=== PATIENT | male | born 1940 | race African-American/Black ===

== ENCOUNTER 2016-09-06 12:14 | Inpatient (IN) | payer MEDICARE, BC ==
[~2016-09-06] VITALS: Ht 185.4 cm; Wt 88.2 kg
[~2016-09-06 12:14] MED LIST: ACET325T9 PO; CIPR500T94 PO; FINA5TAB4 PO; HYDR-2666 PO; LEVO250T25 PO; NITR100C62 PO; OXYC1TAB7 PO; SULF1TAB23 PO; SULF1TAB24 PO; TAMS0.4C97 PO; TRAM-29 PO
--- NOTE | 2016-09-06 13:05 | PHYS DOC ---
Past Medical History Past Medical History: Other Additional Past Medical Histor: BPH. Past Surgical History: Other Additional Past Surgical Histo: Prostate Surgery Alcohol Use: None Drug Use: None Adult General Chief Complaint Chief Complaint: URINARY RETENTION HPI HPI Patient is a 75 year old male with history of BPH who presents today with inability to void since last night, patient also states he noted some clots coming out of his urethra since last night. Patient states he had prostate surgery July 2015. He states since then he has continued to have intermittent episodes of clots in his urine and urinary retention. He states he called Dr. Cabezas his urologist who asked him to come to the ED to have a catheter placed. He states he has an appointment with kale Cabezas next week Review of Systems Review of Systems Constitutional: Denies fever or chills [] Eyes: Denies change in visual acuity, redness, or eye pain [] HENT: Denies nasal congestion or sore throat [] Respiratory: Denies cough or shortness of breath [] Cardiovascular: No additional information not addressed in HPI [] GI: Denies abdominal pain, nausea, vomiting, bloody stools or diarrhea [] : urinary retention, clots in urine Musculoskeletal: Denies back pain or joint pain [] Integument: Denies rash or skin lesions [] Neurologic: Denies headache, focal weakness or sensory changes [] Endocrine: Denies polyuria or polydipsia [] Current Medications Current Medications Current Medications Medications (Trade) Dose Ordered Sig/[facility] Start Time Stop Time Status Last Admin Dose Admin Acetaminophen/ Hydrocodone Bitart (Lortab 5/325) 1 tab 1X ONCE 09/06/16 15:00 09/06/16 15:01 DC 09/06/16 14:38 1 TAB Tamsulosin HCl (Flomax) 0.4 mg 1X ONCE 09/06/16 15:00 09/06/16 15:01 DC 09/06/16 14:39 0.4 MG Allergies Allergies Allergies Coded Allergies Type Severity Reaction Last Updated Verified No Known Drug Allergies 03/09/16 No Physical Exam Physical Exam Constitutional: Well developed, well nourished, no acute distress, non-toxic appearance. [] HENT: Normocephalic, atraumatic, bilateral external ears normal, oropharynx moist, no oral exudates, nose normal. [] Eyes: PERRLA, EOMI, conjunctiva normal, no discharge. [] Neck: Normal range of motion, no tenderness, supple, no stridor. [] Cardiovascular:Heart rate regular rhythm, no murmur [] Lungs & Thorax: Bilateral breath sounds clear to auscultation [] Abdomen: Bowel sounds normal, soft, no tenderness, no masses, no pulsatile masses. [] Male External has small amount of fresh blood clots around the penis and diaper Blader feels distended Skin: Warm, dry, no erythema, no rash. [] Back: No tenderness, no CVA tenderness. [] Extremities: No tenderness, no cyanosis, no clubbing, ROM intact, no edema. [] Neurologic: Alert and oriented X 3, normal motor function, normal sensory function, no focal deficits noted. [] Psychologic: Affect normal, judgement normal, mood normal. [] Current Patient Data Vital Signs Vital Signs Date Time Temp Pulse Resp B/P Pulse Ox O2 Delivery O2 Flow Rate FiO2 09/06/16 17:13 104 09/06/16 16:43 22 09/06/16 14:43 97 09/06/16 14:38 Room Air 09/06/16 12:30 97.7 197/119 97.7 Lab Values Laboratory Tests Test 09/06/16 13:10 Urine Collection Type U cath Urine Color Red Urine Clarity Turbid Urine pH 5.0 Urine Specific [place] 1.025 Urine Protein >=300mg/dL (NEG-TRACE) Urine Glucose (UA) mg/dL (NEG) Urine Ketones (Stick) mg/dL (NEG) Urine Blood Large (NEG) Urine Nitrite (NEG) Urine Bilirubin (NEG) Urine Urobilinogen Dipstick mg/dL (0.2 mg/dL) Urine Leukocyte Esterase (NEG) Urine RBC Tntc/HPF (0-2) Urine WBC Fobs/HPF (0-4) Urine Bacteria Few/HPF (0-FEW) Course & Med Decision Making Course & Med Decision Making Pertinent Labs and Imaging studies reviewed. (See chart for details) This is a 75-year-old male patient with history of BPH who presents today with urinary retention as well as clots in his urine, he had small amount of clots around his diaper penis area on arrival. He follows up with Dr. Cabezas and states Dr. Cabezas asked him to come to the ED to have a catheter placed. Two nurses tried to place a cuadet catheter which went in and only 30 cc of bloody urine came out, they tried a three way catheter and this one could not be advance in place. BVI [address] Cabezas, he stated he'll come to the ED around 16:30 and put the Lopez catheter, urology cart at the door 16:[address] Jorge 1730: Accepted care from Nhan Chavez APRN at end of her shift. Dr. Cabezas, Urology, came to bedside and placed lopez catheter. He recommended inpatient management for hematuria and urinary retention. Discussed case with Dr. Waldron , supervisor aluminum fabrication for Dr. Lopez, who will admit. Dragon Disclaimer Dragon Disclaimer This electronic medical record was generated, in whole or in part, using a voice recognition dictation system. Departure Departure Impression: Primary Impression: Urinary retention Additional Impression: Hematuria Disposition: ADMITTED INPATIENT Condition: STABLE Referrals: NILA LOPEZ MD (PCP) Problem Qualifiers NHAN ESPINOSA APRN Sep 06, 2016 13:05 Collin JORGE MD Sep 06, 2016 17:39
[2016-09-06 13:21] LABS: PROTEIN,URINE >=300 mg/dL (NEG-TRACE)
[2016-09-06 13:35] LABS: RBC,URINE TNTC /HPF (0-2); WBC,URINE FOBS /HPF (0-4)
[2016-09-06 13:37] LABS: BACTERIA,URINE FEW /HPF (0-FEW)
[2016-09-06] MEDS ORDERED: TAMSULOSIN 0.4 MG CAP.ER.24H. PO ONE (15:00)
[2016-09-06] MEDS ORDERED: HYDROCODONE/APAP 5/325MG TABLET. PO ONE (15:00)
[2016-09-06] MEDS ORDERED: TAMS0.4C97 PO (16:44)
[2016-09-06] MEDS ORDERED: CIPR500T94 PO (16:44)
[2016-09-06] MEDS ORDERED: ONDANSETRON PF 4 MG/2 ML VIAL. IV PRN (17:45)
[2016-09-06] MEDS ORDERED: FENTANYL PF 100 MCG/2 ML VIAL. IV PRN (17:45)
[2016-09-06] MEDS ORDERED: ACETAMINOPHEN 325 MG TABLET. PO PRN (17:45)
--- NOTE | 2016-09-06 18:52 | ACF ---
Admission Forms Criteria URINARY COMPLICATIONS Clinical Indications for Inpatient Care (Place 'X' for any and all applicable criteria): Ongoing inpatient care may be indicated for urinary complications with ANY ONE of the following: [ ]I. Urinary tract infection requiring inpatient care as indicated by ANY ONE of the following(8)(19)(20): [ ]a) Severe symptoms (eg, high fever, severe pain) [ ]b) Vomiting or dehydration requiring ongoing inpatient care [ ]c) IV antibiotic needs that cannot be managed at lower level of care [ ]d) Hemodynamic instability [ ]e) Obstruction of collecting system by stone or tumor [X]II. Urinary retention requiring drainage or surgery (3)(4)(5)(17)(18) [ ]III. Renal failure (Use Renal Failure Criteria for further information.) [ ]IV. Oliguria(30) [ ]V. Post obstructive diuresis requiring close monitoring of urine output and intravenous compensation for excessive fluid losses(33) Extended stay beyond goal length of stay for primary condition may be needed until ALL of the following are present(3)(4)(5)(8): [ ]a) Renal function (creatinine) at baseline, or daily decreases in creatinine consistent with renal function return [ ]b) Voiding adequately or with urinary catheter or percutaneous suprapubic tube and management regimen in place that is performable at lower level of care. [ ]c) Urine output adequate [ ]d) Fever absent or resolving [ ]e) Infection absent or treatable at next level of care The original [employer] content created by [employer] has been revised. The portions of the content which have been revised are identified through the use of italic text or in bold, and [facility] has neither reviewed nor approved the modified material. All other unmodified content is copyright [employer] Please see references footnoted in the original [facility] edition 2016 Admission Criteria Met?: Yes MISHEL CRUZ Sep 06, 2016 18:52
[2016-09-06 19:24] LABS: BASO % 1 % (0-3); EOS % 0 % (0-3); HEMATOCRIT 38.2 % (39.0-53.0); HEMOGLOBIN 12.5 g/dL (13.0-17.5); LYMPH # 0.9 x10^3/uL (1.0-4.8); LYMPH % 14 % (24-48); MEAN CORPUSCULAR HEMOGLOBIN 30 pg (25-35); MEAN CORPUSCULAR HGB CONC 33 g/dL (31-37); MEAN CORPUSCULAR VOLUME 91 fL (79-100); MONO % 9 % (0-9); NEUT % 76 % (31-73); PLATELET COUNT 159 x10^3/uL (140-400); RED BLOOD COUNT 4.21 x10^6/uL (4.30-5.70); RED CELL DISTRIBUTION WIDTH 15.1 % (11.5-14.5); WHITE BLOOD COUNT 6.7 x10^3/uL (4.0-11.0)
[2016-09-06 19:34] LABS: INR 1.1 (0.8-1.1); PROTHROMBIN TIME PATIENT 13.9 SEC (11.7-14.0)
[2016-09-06 19:36] LABS: CALCIUM 8.8 mg/dL (8.5-10.1); CREATININE 1.2 mg/dL (0.7-1.3); POTASSIUM 4.1 mmol/L (3.5-5.1)
[2016-09-06 23:43] VITALS: BP 118/82
[2016-09-07 03:45] VITALS: BP 128/77
[2016-09-07 07:00] VITALS: BP 135/77
[2016-09-07] MEDS ORDERED: OMEP20CA9 PO (08:13)
--- NOTE | 2016-09-07 08:18 | PDOC ---
PROGRESS NOTES Subjective Subjective Patient denies pain, feels fine. Objective Objective Vital Signs Date Time Temp Pulse Resp B/P Pulse Ox O2 Delivery O2 Flow Rate FiO2 09/07/16 07:00 98.0 70 19 135/77 96 Room Air 98.0 Intake and Output 09/07/16 07:00 Intake Total 240 ml Balance 240 ml Intake Oral 240 ml Physical Exam Abdomen: Normal bowel sounds, Soft, No tenderness Heart: Regular rate Extremities: No edema General: Alert, Oriented X3, No acute distress Lungs: Clear to auscultation Assessment Assessment Problems Medical Problems: (1) Hematuria Status: Acute (2) Urinary retention Status: Acute Plan Plan of Care 1. Hematuria with urinary retention - improved after bladder irrigation and lopez placement by Dr Cabezas yesterday in ER. Urine clearing. Dr Cabezas plans cystoscopy tomorrow for further evaluation. Continue Flomax. 2. GERD - stable, continue PPI. Comment Review of Relevant I have reviewed the following items candy (where applicable) has been applied. Labs Laboratory Tests Test 09/06/16 13:10 09/06/16 19:15 Urine Collection Type U cath Urine Color Red Urine Clarity Turbid Urine pH 5.0 Urine Specific [place] 1.025 Urine Protein >=300mg/dL (NEG-TRACE) Urine Glucose (UA) mg/dL (NEG) Urine Ketones (Stick) mg/dL (NEG) Urine Blood Large (NEG) Urine Nitrite (NEG) Urine Bilirubin (NEG) Urine Urobilinogen Dipstick mg/dL (0.2 mg/dL) Urine Leukocyte Esterase (NEG) Urine RBC Tntc/HPF (0-2) Urine WBC Fobs/HPF (0-4) Urine Bacteria Few/HPF (0-FEW) White Blood Count 6.7x10^3/uL (4.0-11.0) Red Blood Count 4.21x10^6/uL (4.30-5.70) Hemoglobin 12.5g/dL (13.0-17.5) Hematocrit 38.2% (39.0-53.0) Mean Corpuscular Volume 91fL (79-100) Mean Corpuscular Hemoglobin 30pg (25-35) Mean Corpuscular Hemoglobin Concent 33g/dL (31-37) Red Cell Distribution Width 15.1% (11.5-14.5) Platelet Count 159x10^3/uL (140-400) Neutrophils (%) (Auto) 76% (31-73) Lymphocytes (%) (Auto) 14% (24-48) Monocytes (%) (Auto) 9% (0-9) Eosinophils (%) (Auto) 0% (0-3) Basophils (%) (Auto) 1% (0-3) Neutrophils # (Auto) 5.1x10^3uL (1.8-7.7) Lymphocytes # (Auto) 0.9x10^3/uL (1.0-4.8) Monocytes # (Auto) 0.6x10^3/uL (0.0-1.1) Eosinophils # (Auto) 0.0x10^3/uL (0.0-0.7) Basophils # (Auto) 0.0x10^3/uL (0.0-0.2) Prothrombin Time 13.9SEC (11.7-14.0) Prothromb Time International Ratio 1.1 (0.8-1.1) Sodium Level 142mmol/L (136-145) Potassium Level 4.1mmol/L (3.5-5.1) Chloride Level 104mmol/L (98-107) Carbon Dioxide Level 27mmol/L (21-32) Anion Gap 11 (6-14) Blood Urea Nitrogen 16mg/dL (8-26) Creatinine 1.2mg/dL (0.7-1.3) Estimated GFR (Cockcroft-Gault) 71.0 Glucose Level 114mg/dL (70-99) Calcium Level 8.8mg/dL (8.5-10.1) Laboratory Tests Test 09/06/16 13:10 09/06/16 19:15 Urine Collection Type U cath Urine Color Red Urine Clarity Turbid Urine pH 5.0 Urine Specific [place] 1.025 Urine Protein >=300mg/dL (NEG-TRACE) Urine Glucose (UA) mg/dL (NEG) Urine Ketones (Stick) mg/dL (NEG) Urine Blood Large (NEG) Urine Nitrite (NEG) Urine Bilirubin (NEG) Urine Urobilinogen Dipstick mg/dL (0.2 mg/dL) Urine Leukocyte Esterase (NEG) Urine RBC Tntc/HPF (0-2) Urine WBC Fobs/HPF (0-4) Urine Bacteria Few/HPF (0-FEW) White Blood Count 6.7x10^3/uL (4.0-11.0) Red Blood Count 4.21x10^6/uL (4.30-5.70) Hemoglobin 12.5g/dL (13.0-17.5) Hematocrit 38.2% (39.0-53.0) Mean Corpuscular Volume 91fL (79-100) Mean Corpuscular Hemoglobin 30pg (25-35) Mean Corpuscular Hemoglobin Concent 33g/dL (31-37) Red Cell Distribution Width 15.1% (11.5-14.5) Platelet Count 159x10^3/uL (140-400) Neutrophils (%) (Auto) 76% (31-73) Lymphocytes (%) (Auto) 14% (24-48) Monocytes (%) (Auto) 9% (0-9) Eosinophils (%) (Auto) 0% (0-3) Basophils (%) (Auto) 1% (0-3) Neutrophils # (Auto) 5.1x10^3uL (1.8-7.7) Lymphocytes # (Auto) 0.9x10^3/uL (1.0-4.8) Monocytes # (Auto) 0.6x10^3/uL (0.0-1.1) Eosinophils # (Auto) 0.0x10^3/uL (0.0-0.7) Basophils # (Auto) 0.0x10^3/uL (0.0-0.2) Prothrombin Time 13.9SEC (11.7-14.0) Prothromb Time International Ratio 1.1 (0.8-1.1) Sodium Level 142mmol/L (136-145) Potassium Level 4.1mmol/L (3.5-5.1) Chloride Level 104mmol/L (98-107) Carbon Dioxide Level 27mmol/L (21-32) Anion Gap 11 (6-14) Blood Urea Nitrogen 16mg/dL (8-26) Creatinine 1.2mg/dL (0.7-1.3) Estimated GFR (Cockcroft-Gault) 71.0 Glucose Level 114mg/dL (70-99) Calcium Level 8.8mg/dL (8.5-10.1) Medications Current Medications Tamsulosin HCl (Flomax) 0.4 mg 1X ONCE PO Last administered on 09/06/16 14:39 ; Start 09/06/16 at 15:00; Stop 09/06/16 at 15:01; Status DC Acetaminophen/ Hydrocodone Bitart (Lortab 5/325) 1 tab 1X ONCE PO Last administered on 09/06/16 14:38; Start 09/06/16 at 15:00; Stop 09/06/16 at 15:01 ; Status DC Ondansetron HCl (Zofran) 4 mg PRN Q8HRS PRN IV NAUSEA/VOMITING; Start 09/06/16 at 17:45; Stop 09/07/16 at 17:44 Fentanyl Citrate (Fentanyl 2ml Vial) 50 mcg PRN Q2HR PRN IV PAIN Last administered on 09/07/16 02:24; Start 09/06/16 at 17:45; Stop 09/07/16 at 17:44 Acetaminophen (Tylenol) 650 mg PRN Q4HRS PRN PO FEVER; Start 09/06/16 at 17:45 ; Stop 09/07/16 at 17:44 Active Scripts Active Omeprazole 20 Mg Capsule.dr 1 Cap PO DAILY Flomax (Tamsulosin Hcl) 0.4 Mg Cap.er.24h 0.4 Mg PO DAILY Reported Tylenol (Acetaminophen) 325 Mg Tablet 1 Tab PO PRN Q4HRS Vitals/I & O Vital Sign - Last 24 Hours 09/06/16 09/06/16 09/06/16 09/06/16 12:30 13:13 13:43 14:13 Temp 97.7 97.7 Pulse 112 108 97 88 Resp 24 17 B/P 197/119 Pulse Ox 100 99 98 99 O2 Delivery Room Air 09/06/16 09/06/16 09/06/16 09/06/16 14:38 14:43 15:13 15:43 Pulse 89 112 92 Resp 14 24 Pulse Ox 97 O2 Delivery Room Air 09/06/16 09/06/16 09/06/16 09/06/16 16:13 16:43 17:13 17:43 Pulse 98 97 104 96 Resp 22 26 Pulse Ox 98 09/06/16 09/07/16 09/07/16 09/07/16 23:43 02:24 02:54 03:20 Temp 97.7 97.7 Pulse 94 Resp 20 18 18 B/P 118/82 Pulse Ox 100 100 100 O2 Delivery Room Air Room Air Room Air 09/07/16 09/07/16 03:45 07:00 Temp 98.0 98.0 98.0 98.0 Pulse 82 70 Resp 19 B/P 128/77 135/77 Pulse Ox 97 96 O2 Delivery Room Air Room Air Intake and Output 09/06/16 09/06/16 09/07/16 15:00 23:00 07:00 Intake Total 240 ml Balance 240 ml LUDIVINA BROWN MD Sep 07, 2016 08:18
--- NOTE | 2016-09-07 08:20 | PDOC ---
Provider Note Provider Note Urology: s/p acute urine clot retention Montague placed by me yesterday, and bladder irrigated until clot free Today, urine color much improved Plan: will allow to eat today NPO after midnight and put on schedule for Cystoscopy tomorrow GLORY CHEN DO Sep 07, 2016 08:20
[2016-09-07] MEDS: TAMSULOSIN 0.4 MG CAP.ER.24H. PO SCH (08:45)
[2016-09-07] MEDS: PANTOPRAZOLE 40 MG TABLET.DR. PO SCH (08:45)
[2016-09-07] MEDS: HYDROCODONE/APAP 5/325MG TABLET. PO PRN ×3 (09:11→22:32)
[2016-09-07 11:00] VITALS: BP 115/66
--- NOTE | 2016-09-07 11:20 | HP ---
ADMIT DATE: 09/06/2016 CHIEF COMPLAINT: Hematuria. HISTORY OF PRESENT ILLNESS: The patient is a 75-year-old male with a history of BPH who presented to the Emergency Room with the above complaint. He reports the onset of hematuria on the day of admission. He describes some pelvic pain that occurred and then he noticed bright red blood in his urine. He also apparently had some difficulty passing his urine. He presented to the Emergency Room. He was seen there by Dr. Cabezas who is his usual urologist. Dr. Cabezas performed bladder irrigation and was then able to place a Montague catheter and the patient was admitted for further treatment. PAST MEDICAL HISTORY: BPH, GERD, osteoarthritis and urinary retention. PAST SURGICAL HISTORY: TURP in the past in 2016, back surgery and hernia repair. ALLERGIES: The patient has no known drug allergies. HOME MEDICATIONS: Flomax 0.4 mg daily, Prilosec 20 mg daily. The patient states that he took Proscar in the past, but had not been taking it recently. FAMILY HISTORY: Noncontributory. SOCIAL HISTORY: The patient is . He has never smoked cigarettes and does not drink alcohol to excess. REVIEW OF SYSTEMS: The patient states he has been feeling well. He denies cough or shortness of breath. He denies chest pain or palpitations. He denies abdominal pain, nausea, vomiting or problems with his bowels. His heartburn seems well controlled with [id number] Prilosec that he takes daily. He denies other recent episodes of hematuria or difficulty passing his urine. PHYSICAL EXAMINATION: GENERAL: The patient is alert and oriented x 3, resting comfortably in bed in no acute distress. HEENT: PERRL, EOMI, sclerae clear. Oropharynx: Mucous membranes moist. NECK: Supple, without lymphadenopathy. CHEST: Clear to auscultation. CARDIOVASCULAR: Regular rhythm without murmur. ABDOMEN: Soft, nontender, normoactive bowel sounds are present. EXTREMITIES: Without edema. ASSESSMENT AND PLAN: 1. Hematuria with urinary retention. This appears to have improved after bladder irrigation and Montague placement by Dr. Cabezas yesterday. The patient's urine is clearing up well. Dr. Cabezas plans cystoscopy tomorrow for further evaluation. Will continue the patient's usual Flomax. 2. Gastroesophageal reflux disease, this has been stable. Continue proton pump inhibitors. LUDIVINA BROWN MD DR: Vilma JOB#: [id number] / [id number] ASUNCION
--- NOTE | 2016-09-07 11:26 | RAD ---
Renal ultrasound, 09/07/2016: History: Gross hematuria The right kidney measures 11.7 cm in length while the left kidney measures 12.0 cm. There is no evidence of hydronephrosis. There are at least 3 simple cysts in the left kidney. The largest of these arises from the upper pole and measures 4.6 cm. No solid renal mass is seen. No abnormal perinephric process is evident. The bladder is decompressed by a Montague catheter and not adequately delineated. IMPRESSION: 1. Left renal cysts. 2. No evidence of renal obstruction.
[2016-09-07 15:00] VITALS: BP 126/72
[2016-09-07 19:00] VITALS: BP 117/71
[2016-09-07 22:53] VITALS: BP 147/82
[2016-09-08] VITALS (12 sets, daily range): BP systolic 110–161; BP diastolic 47–100
[2016-09-08] MEDS ORDERED: MORPHINE SULFATE 2 MG/ML DISP.SYRIN. IV PRN (07:00)
[2016-09-08] MEDS ORDERED: ONDANSETRON PF 4 MG/2 ML VIAL. IV PRN (07:00)
[2016-09-08] MEDS ORDERED: LIDOCAINE 1% 1 ML SYRINGE. ID PRN (07:00)
[2016-09-08] MEDS ORDERED: FENTANYL PF 100 MCG/2 ML VIAL. IV PRN ×2 (07:00)
[2016-09-08] MEDS ORDERED: HYDROMORPHONE 2 MG/ML VIAL. IV PRN (07:00)
[2016-09-08] MEDS ORDERED: PROCHLORPERAZINE 10 MG/2 ML VIAL. IV PRN (07:00)
[2016-09-08] MEDS ORDERED: IV RINGERS,LACTATED 1000ML 1,000 ML IV SCH (07:00)
[2016-09-08] MEDS: TAMSULOSIN 0.4 MG CAP.ER.24H. PO SCH (07:25)
[2016-09-08] MEDS: PANTOPRAZOLE 40 MG TABLET.DR. PO SCH (07:25)
--- NOTE | 2016-09-08 08:06 | PDOC ---
PROGRESS NOTES Subjective Subjective Patient without complaint, no pelvic pain. Objective Objective Vital Signs Date Time Temp Pulse Resp B/P Pulse Ox O2 Delivery O2 Flow Rate FiO2 09/08/16 03:00 99.3 70 18 127/72 98 Room Air 99.3 Intake and Output 09/08/16 07:00 Intake Total 1850 ml Output Total 1825 ml Balance 25 ml Intake Oral 1850 ml Output Urine Total 1825 ml Physical Exam Abdomen: Normal bowel sounds, Soft, No tenderness Heart: Regular rate Extremities: No edema General: Alert, Oriented X3, No acute distress Lungs: Clear to auscultation Assessment Assessment Problems Medical Problems: (1) Hematuria Status: Acute (2) Urinary retention Status: Acute Plan Plan of Care 1. Urinary retention with hematuria - urine appears clear in Mont[place]. Dr Cabezas plans cystoscopy today, anticipate patient may be able to be discharged after that if OK with Dr Cabezas. Continue Montague for now. Continue Flomax. 2. GERD - controlled, continue PPI. Comment Review of Relevant I have reviewed the following items candy (where applicable) has been applied. Labs Laboratory Tests Test 09/06/16 13:10 09/06/16 19:15 Urine Collection Type U cath Urine Color Red Urine Clarity Turbid Urine pH 5.0 Urine Specific [place] 1.025 Urine Protein >=300mg/dL (NEG-TRACE) Urine Glucose (UA) mg/dL (NEG) Urine Ketones (Stick) mg/dL (NEG) Urine Blood Large (NEG) Urine Nitrite (NEG) Urine Bilirubin (NEG) Urine Urobilinogen Dipstick mg/dL (0.2 mg/dL) Urine Leukocyte Esterase (NEG) Urine RBC Tntc/HPF (0-2) Urine WBC Fobs/HPF (0-4) Urine Bacteria Few/HPF (0-FEW) White Blood Count 6.7x10^3/uL (4.0-11.0) Red Blood Count 4.21x10^6/uL (4.30-5.70) Hemoglobin 12.5g/dL (13.0-17.5) Hematocrit 38.2% (39.0-53.0) Mean Corpuscular Volume 91fL (79-100) Mean Corpuscular Hemoglobin 30pg (25-35) Mean Corpuscular Hemoglobin Concent 33g/dL (31-37) Red Cell Distribution Width 15.1% (11.5-14.5) Platelet Count 159x10^3/uL (140-400) Neutrophils (%) (Auto) 76% (31-73) Lymphocytes (%) (Auto) 14% (24-48) Monocytes (%) (Auto) 9% (0-9) Eosinophils (%) (Auto) 0% (0-3) Basophils (%) (Auto) 1% (0-3) Neutrophils # (Auto) 5.1x10^3uL (1.8-7.7) Lymphocytes # (Auto) 0.9x10^3/uL (1.0-4.8) Monocytes # (Auto) 0.6x10^3/uL (0.0-1.1) Eosinophils # (Auto) 0.0x10^3/uL (0.0-0.7) Basophils # (Auto) 0.0x10^3/uL (0.0-0.2) Prothrombin Time 13.9SEC (11.7-14.0) Prothromb Time International Ratio 1.1 (0.8-1.1) Sodium Level 142mmol/L (136-145) Potassium Level 4.1mmol/L (3.5-5.1) Chloride Level 104mmol/L (98-107) Carbon Dioxide Level 27mmol/L (21-32) Anion Gap 11 (6-14) Blood Urea Nitrogen 16mg/dL (8-26) Creatinine 1.2mg/dL (0.7-1.3) Estimated GFR (Cockcroft-Gault) 71.0 Glucose Level 114mg/dL (70-99) Calcium Level 8.8mg/dL (8.5-10.1) Microbiology 09/06/16 Urine Culture - Preliminary, Resulted 09/06/16 Urine Culture Result 1 (ROSELINE) - Preliminary, Resulted Medications Current Medications Tamsulosin HCl (Flomax) 0.4 mg 1X ONCE PO Last administered on 09/06/16 14:39 ; Start 09/06/16 at 15:00; Stop 09/06/16 at 15:01; Status DC Acetaminophen/ Hydrocodone Bitart (Lortab 5/325) 1 tab 1X ONCE PO Last administered on 09/06/16 14:38; Start 09/06/16 at 15:00; Stop 09/06/16 at 15:01 ; Status DC Ondansetron HCl (Zofran) 4 mg PRN Q8HRS PRN IV NAUSEA/VOMITING; Start 09/06/16 at 17:45; Stop 09/07/16 at 17:44; Status DC Fentanyl Citrate (Fentanyl 2ml Vial) 50 mcg PRN Q2HR PRN IV PAIN Last administered on 09/07/16 02:24; Start 09/06/16 at 17:45; Stop 09/07/16 at 09:00 ; Status DC Acetaminophen (Tylenol) 650 mg PRN Q4HRS PRN PO FEVER; Start 09/06/16 at 17:45 ; Stop 09/07/16 at 17:44; Status DC Tamsulosin HCl (Flomax) 0.4 mg DAILY PO Last administered on 09/07/16 08:45; Start 09/07/16 at 09:00 Pantoprazole Sodium (Protonix) 40 mg DAILYAC PO Last administered on 09/07/16 08:45; Start 09/07/16 at 09:00 Acetaminophen/ Hydrocodone Bitart (Lortab 5/325) 1 tab PRN Q6HRS PRN PO PAIN Last administered on 09/07/16 22:32; Start 09/07/16 at 09:00 Ondansetron HCl (Zofran) 4 mg PRN Q6HRS PRN IV NAUSEA/VOMITING; Start 09/08/16 at 07:00; Stop 09/09/16 at 01:00 Fentanyl Citrate (Fentanyl 2ml Vial) 25 mcg PRN Q5MIN PRN IV MILD PAIN; Start 09/08/16 at 07:00; Stop 09/09/16 at 01:00 Fentanyl Citrate (Fentanyl 2ml Vial) 50 mcg PRN Q5MIN PRN IV MODERATE PAIN; Start 09/08/16 at 07:00; Stop 09/09/16 at 01:00 Morphine Sulfate 1 mg 1 mg PRN Q10MIN PRN IV SEVERE PAIN; Start 09/08/16 at 07: 00; Stop 09/09/16 at 01:00 Lactated Ringer's (Iv Lactated Ringers) 1,000 ml @ 0 mls/hr Q0M IV ; Start at 07:00; Stop 09/08/16 at 18:59 Lidocaine HCl 2 ml PRN 1X PRN ID PRIOR TO IV START; Start 09/08/16 at 07:00; Stop 09/09/16 at 01:00 Hydromorphone HCl (Dilaudid) 0.5 mg PRN Q10MIN PRN IV SEV PAIN, Second choice; Start 09/08/16 at 07:00; Stop 09/09/16 at 01:00 Prochlorperazine Edisylate (Compazine) 5 mg PACU PRN PRN IV NAUSEA, MRX1; Start 09/08/16 at 07:00; Stop 09/09/16 at 01:00 Active Scripts Active Omeprazole 20 Mg Capsule.dr 1 Cap PO DAILY Flomax (Tamsulosin Hcl) 0.4 Mg Cap.er.24h 0.4 Mg PO DAILY Reported Tylenol (Acetaminophen) 325 Mg Tablet 1 Tab PO PRN Q4HRS Vitals/I & O Vital Sign - Last 24 Hours 09/07/16 09/07/16 09/07/16 09/07/16 09:11 11:00 15:00 18:12 Temp 98.4 97.6 98.4 97.6 Pulse 75 71 Resp 19 19 B/P 115/66 126/72 Pulse Ox 95 96 O2 Delivery Room Air Room Air Room Air Room Air 09/07/16 09/07/16 09/07/16 09/07/16 19:00 20:00 22:32 22:53 Temp 98.4 98.6 98.4 98.6 Pulse 77 76 Resp 18 18 18 B/P 117/71 147/82 Pulse Ox 97 96 97 O2 Delivery Room Air Room Air Room Air Room Air 09/07/16 09/08/16 23:32 03:00 Temp 99.3 99.3 Pulse 70 Resp 20 18 B/P 127/72 Pulse Ox 97 98 O2 Delivery Room Air Room Air Intake and Output 09/07/16 09/07/16 09/08/16 15:00 23:00 07:00 Intake Total 500 ml 1350 ml Output Total 1075 ml 750 ml Balance 500 ml 275 ml -750 ml LUDIVINA BROWN MD Sep 08, 2016 08:06
[2016-09-08] MEDS: HYDROCODONE/APAP 5/325MG TABLET. PO PRN ×2 (10:53→21:30)
--- NOTE | 2016-09-08 11:04 | CONS ---
DATE OF CONSULTATION: 09/06/2016 CHIEF COMPLAINT: Urinary clot retention, inability to place Montague catheter. HISTORY OF PRESENT ILLNESS: This is a 75-year-old -[place] male who presented to the Emergency Room complaining of gross hematuria, which started earlier in the day, bladder pain and inability to void. The nursing staff attempted to place a Montague catheter, but they were not able to place one and therefore Urology was consulted. PAST MEDICAL HISTORY: The patient does have a history of BPH. He evidently had a TURP years ago. MEDICATIONS: The patient denies blood thinners. PHYSICAL EXAMINATION: GENERAL DESCRIPTION: A 75-year-old -[place] male. He is in moderate distress secondary to bladder pain and discomfort. GENITOURINARY: He has gross hematuria around the meatus and some blood-tinged urine on the sheets. EXTREMITIES: Negative for cyanosis or edema. PROCEDURE: The patient was prepped and draped in sterile fashion, 2% lidocaine gel was instilled into the urethra. Following that, a 20-Maltese Montague catheter was lubricated and advanced into the urethra past the prostate and into the bladder. The 10 mL balloon was filled. There was immediate return of dark bloody urine with clots. I then began to irrigate the catheter with a Anncy syringe and sterile water and there was immediate return of grossly bloody urine and numerous clots. After a few minutes, I had the bladder decompressed and the patient was more comfortable. Then for the next 30 minutes I continued to irrigate with the Nancy syringe to remove as many clots as I could and this process took about 40 minutes. At this point, there were fewer clots. The urine was still heme colored. The catheter was connected to dependent drainage bag. The patient felt much better at this point. He was no longer in distress. His vital signs were within normal limits. IMPRESSION: 1. Gross hematuria. 2. Urinary clot retention. PLAN: The patient was admitted to the hospital to the hospitalist. I will follow him throughout his hospital course. He will need a cystoscopy evaluation prior to discharge. This was explained to the patient. GLORY CHEN DO DR: ARON/marcela JOB#: [id number] / [id number]
[2016-09-08] MEDS ORDERED: LEVOFLOXACIN PREMIX 500 MG/100 ML BAG. IV ONE (12:00)
[2016-09-08] MEDS ORDERED: LIDOCAINE 2% JELLY 6ML IN APPLICATOR. ONE (12:00)
[2016-09-08] MEDS ORDERED: FENTANYL PF 100 MCG/2 ML VIAL. ONE (12:56)
[2016-09-08] MEDS ORDERED: DEXAMETHASONE SOD PHOS 20 MG/5 ML VIAL. ONE (12:56)
[2016-09-08] MEDS ORDERED: LIDOCAINE 2% 100 MG/5 ML DISP.SYRIN. ONE (12:56)
[2016-09-08] MEDS ORDERED: PROPOFOL 20 ML IV ONE ×2 (12:56→13:55)
[2016-09-08] MEDS ORDERED: SEVOFLURANE 61 TO 120 MINUTES. IH ONE (12:56)
[2016-09-08] MEDS ORDERED: ONDANSETRON PF 4 MG/2 ML VIAL. ONE (12:57)
[2016-09-08] MEDS ORDERED: PHENYLEPHRINE in 0.9% NACL PF 1 MG/10 ML DISP.SYRIN. IV ONE (13:45)
[2016-09-08] MEDS ORDERED: EPHEDRINE PF IN SALINE 50 MG/5 ML DISP.SYRIN. IV ONE (14:01)
--- NOTE | 2016-09-08 14:29 | PDOC ---
BRIEF OPERATIVE NOTE Date: Sep 08, 2016 Pre-Op Diagnosis Gross Hematuria, urinary clot retention Post-Op Diagnosis Hemorrhagic prostatitis Procedure Performed Cystoscopy fulguration prostate Surgeon Jocelynn Anesthesia Type: General Specimens Obtained None Findings Hemorrhagic prostate Complications none Additional Remarks Tolerated well. GLORY CHEN DO Sep 08, 2016 14:28
--- NOTE | 2016-09-08 14:30 | PDOC ---
Provider Note Provider Note Urology: Patient should be able to go home tomorrow Rx Cipro, Flomax, Proscar f/u as needed. GLORY CHEN DO Sep 08, 2016 14:30
--- NOTE | 2016-09-08 19:05 | OP ---
DATE OF SURGERY: 09/08/2016 PREOPERATIVE DIAGNOSES: Gross hematuria, urinary clot retention. POSTOPERATIVE DIAGNOSIS: Hemorrhagic prostatitis. PROCEDURE: Cystoscopy, fulguration of prostate. SURGEON: Glory Chen DO. ANESTHESIA: General. INDICATIONS AND JUDGMENT: This is a 75-year-old -[place] male who was admitted through the Emergency Room with gross hematuria and urinary clot retention. A catheter was placed in the Emergency Room and irrigated until he was free of clots. The following day, the patient's urine was improved. It was felt that he should undergo cystoscopy to determine site of bleeding. He appeared to understand and was agreeable. He has a previous history of a TURP procedure. He denies any difficulty voiding prior to his hospitalization. DESCRIPTION OF PROCEDURE: The patient was preloaded with IV Levaquin. He was taken to the operating room, placed on the operating room table in supine position, given a general anesthetic and then placed in a dorsolithotomy position. Perineum and genitalia prepped and draped in sterile fashion. Rigid cystoscopy was performed. The urethra was normal in course and caliber. The prostate was visualized. He had hemorrhagic friable blood vessels on the prostate. His prostate was adequately resected. He was not visually obstructed. The scope was advanced into the bladder. The bladder was carefully examined with a 30 degree and 70 degree lens. There was no evidence of bladder tumor, negative for bladder calculi. It appeared that the bleeding had originated within the prostate fossa. A 24-Iranian resectoscope sheath was introduced into the urethra and into the bladder. An [employer] resectoscope was then utilized and was fitted with a rollerball electrode. The prostate and the friable blood vessels were fulgurated with the rollerball electrode. This was carried out at the prostate, most of the friable bleeding tight vessels were at the bladder neck and at the mid prostatic fossa. Hemostasis was obtained. The instruments were removed. A 20-Iranian 2-way Montague catheter was lubricated and advanced into the urethra and into the bladder without difficulty. A 10 mL balloon was filled and this was connected to a dependent drainage bag. Plans will be to get the Montague catheter out in the morning. The patient will be going home on antibiotics, Cipro 500 mg p.o. b.i.d. for 5 days, a prescription for Flomax 1 tablet daily and a prescription for Proscar 5 mg daily to dry up the hemorrhagic blood vessels of the prostate. GLORY CHEN DO DR: ARON/marcela JOB#: [id number] / [id number]
[2016-09-09 02:40] VITALS: BP 144/84
[2016-09-09 07:00] VITALS: BP 160/82
[2016-09-09] MEDS: PANTOPRAZOLE 40 MG TABLET.DR. PO SCH (08:06)
[2016-09-09] MEDS: TAMSULOSIN 0.4 MG CAP.ER.24H. PO SCH (08:07)
--- NOTE | 2016-09-09 08:33 | PDOC ---
PROGRESS NOTES Subjective Subjective Patient feels fine, ready to go home today. Objective Objective Vital Signs Date Time Temp Pulse Resp B/P Pulse Ox O2 Delivery O2 Flow Rate FiO2 09/09/16 07:00 97.7 80 20 160/82 96 Room Air 97.7 Intake and Output 09/09/16 07:00 Intake Total 760 ml Output Total 2375 ml Balance -1615 ml Intake Oral 760 ml Output Urine Total 2375 ml Physical Exam Abdomen: Normal bowel sounds, Soft, No tenderness Heart: Regular rate Extremities: No edema General: Alert, Oriented X3, No acute distress Lungs: Clear to auscultation Assessment Assessment Problems Medical Problems: (1) Hematuria Status: Acute (2) Prostatic hemorrhage Status: Acute (3) Urinary retention Status: Acute Plan Plan of Care 1. Hemorrhagic prostatitis - tx on cystoscopy yesterday. Home today on Flomax, Cipro and Proscar per Dr Cabezas. Continue Montague per his recommendation. Patient comfortable with this. Urine culture negative. Comment Review of Relevant I have reviewed the following items candy (where applicable) has been applied. Labs Microbiology 09/06/16 Urine Culture - Final, Complete 09/06/16 Urine Culture Result 1 (ROSELINE) - Final, Complete Medications Current Medications Tamsulosin HCl (Flomax) 0.4 mg 1X ONCE PO Last administered on 09/06/16 14:39 ; Start 09/06/16 at 15:00; Stop 09/06/16 at 15:01; Status DC Acetaminophen/ Hydrocodone Bitart (Lortab 5/325) 1 tab 1X ONCE PO Last administered on 09/06/16 14:38; Start 09/06/16 at 15:00; Stop 09/06/16 at 15:01 ; Status DC Ondansetron HCl (Zofran) 4 mg PRN Q8HRS PRN IV NAUSEA/VOMITING; Start 09/06/16 at 17:45; Stop 09/07/16 at 17:44; Status DC Fentanyl Citrate (Fentanyl 2ml Vial) 50 mcg PRN Q2HR PRN IV PAIN Last administered on 09/07/16 02:24; Start 09/06/16 at 17:45; Stop 09/07/16 at 09:00 ; Status DC Acetaminophen (Tylenol) 650 mg PRN Q4HRS PRN PO FEVER; Start 09/06/16 at 17:45 ; Stop 09/07/16 at 17:44; Status DC Tamsulosin HCl (Flomax) 0.4 mg DAILY PO Last administered on 09/09/16 08:07; Start 09/07/16 at 09:00 Pantoprazole Sodium (Protonix) 40 mg DAILYAC PO Last administered on 09/09/16 08:06; Start 09/07/16 at 09:00 Acetaminophen/ Hydrocodone Bitart (Lortab 5/325) 1 tab PRN Q6HRS PRN PO PAIN Last administered on 09/08/16 21:30; Start 09/07/16 at 09:00 Ondansetron HCl (Zofran) 4 mg PRN Q6HRS PRN IV NAUSEA/VOMITING; Start 09/08/16 at 07:00; Stop 09/09/16 at 01:00; Status DC Fentanyl Citrate (Fentanyl 2ml Vial) 25 mcg PRN Q5MIN PRN IV MILD PAIN; Start 09/08/16 at 07:00; Stop 09/09/16 at 01:00; Status DC Fentanyl Citrate (Fentanyl 2ml Vial) 50 mcg PRN Q5MIN PRN IV MODERATE PAIN Last administered on 09/08/16 14:43; Start 09/08/16 at 07:00; Stop 09/09/16 at 01:00; Status DC Morphine Sulfate 1 mg 1 mg PRN Q10MIN PRN IV SEVERE PAIN; Start 09/08/16 at 07: 00; Stop 09/09/16 at 01:00; Status DC Lactated Ringer's (Iv Lactated Ringers) 1,000 ml @ 0 mls/hr Q0M IV Last administered on 09/08/16 12:10; Start 09/08/16 at 07:00; Stop 09/08/16 at 18:59 ; Status DC Lidocaine HCl 2 ml PRN 1X PRN ID PRIOR TO IV START; Start 09/08/16 at 07:00; Stop 09/09/16 at 01:00; Status DC Hydromorphone HCl (Dilaudid) 0.5 mg PRN Q10MIN PRN IV SEV PAIN, Second choice; Start 09/08/16 at 07:00; Stop 09/09/16 at 01:00; Status DC Prochlorperazine Edisylate 5 mg 5 mg PACU PRN PRN IV NAUSEA, MRX1; Start at 07:00; Stop 09/09/16 at 01:00; Status DC Levofloxacin/ Dextrose (LEVAQUIN 500mg PREMIX) 100 ml @ As Directed STK-MED ONCE IV ; Start 09/08/16 at 12:11; Stop 09/08/16 at 12:12; Status DC Sevoflurane (Ultane) 60 ml STK-MED ONCE IH ; Start 09/08/16 at 12:56; Stop 09/08 at 12:57; Status DC Fentanyl Citrate 100 mcg 100 mcg STK-MED ONCE .ROUTE ; Start 09/08/16 at 12:56; Stop 09/08/16 at 12:57; Status DC Propofol (Diprivan) 20 ml @ As Directed STK-MED ONCE IV ; Start 09/08/16 at 12: 56; Stop 09/08/16 at 12:57; Status DC Lidocaine HCl 100 mg STK-MED ONCE .ROUTE ; Start 09/08/16 at 12:56; Stop at 12:57; Status DC Dexamethasone Sodium Phosphate (Decadron) 20 mg STK-MED ONCE .ROUTE ; Start at 12:56; Stop 09/08/16 at 12:57; Status DC Ondansetron HCl 4 mg 4 mg STK-MED ONCE .ROUTE ; Start 09/08/16 at 12:57; Stop at 12:58; Status DC Levofloxacin/ Dextrose (LEVAQUIN 500mg PREMIX) 100 ml @ 100 mls/hr 1X ONCE IV ; Start 09/08/16 at 13:30; Stop 09/08/16 at 14:29; Status DC Phenylephrine HCl 1 mg 1 mg STK-MED ONCE IV ; Start 09/08/16 at 13:45; Stop at 13:46; Status DC Propofol (Diprivan) 20 ml @ As Directed STK-MED ONCE IV ; Start 09/08/16 at 13: 55; Stop 09/08/16 at 13:56; Status DC Ephedrine Sulfate 50 mg STK-MED ONCE IV ; Start 09/08/16 at 14:01; Stop at 14:02; Status DC Lidocaine HCl (Glydo (Lidocaine) Jelly) 12 ekaterina STK-MED ONCE .ROUTE ; Start 09/08 at 12:00; Stop 09/08/16 at 16:20; Status DC Active Scripts Active Omeprazole 20 Mg Capsule.dr 1 Cap PO DAILY Flomax (Tamsulosin Hcl) 0.4 Mg Cap.er.24h 0.4 Mg PO DAILY Reported Tylenol (Acetaminophen) 325 Mg Tablet 1 Tab PO PRN Q4HRS Vitals/I & O Vital Sign - Last 24 Hours 09/08/16 09/08/16 09/08/16 09/08/16 10:53 11:00 12:16 14:23 Temp 98.2 98.3 97.6 98.2 98.3 97.6 Pulse 80 74 77 Resp 18 B/P 137/89 150/76 123/60 Pulse Ox 94 97 100 O2 Delivery Room Air Room Air Room Air Room Air 09/08/16 09/08/16 09/08/16 09/08/16 14:38 14:43 14:54 15:09 Temp 98.2 98.2 Pulse 82 73 74 Resp 16 14 B/P 131/76 141/75 144/80 Pulse Ox 95 96 96 O2 Delivery Room Air Room Air Room Air Room Air 09/08/16 09/08/16 09/08/16 09/08/16 15:30 15:45 16:00 16:15 Temp 97.9 97.9 97.9 97.9 97.9 97.9 97.9 97.9 Pulse 81 84 87 88 Resp 19 B/P 125/79 117/87 137/91 161/100 Pulse Ox 97 96 97 95 O2 Delivery Room Air Room Air Room Air Room Air 09/08/16 09/08/16 09/08/16 09/08/16 16:45 17:15 18:15 19:15 Temp 97.9 97.9 97.9 97.9 97.9 97.9 97.9 97.9 Pulse 89 89 93 95 Resp B/P 110/47 138/78 159/91 141/75 Pulse Ox 95 95 93 95 O2 Delivery Room Air Room Air Room Air Room Air 09/08/16 09/08/16 09/08/16 09/08/16 20:03 21:30 22:32 22:46 Temp 96.3 96.3 Pulse 88 Resp 20 B/P 138/93 Pulse Ox 95 95 91 O2 Delivery Room Air Room Air Room Air Room Air 09/09/16 09/09/16 02:40 07:00 Temp 99.5 97.7 99.5 97.7 Pulse 90 80 Resp 20 20 B/P 144/84 160/82 Pulse Ox 93 96 O2 Delivery Room Air Room Air Intake and Output 09/08/16 09/08/16 09/09/16 15:00 23:00 07:00 Intake Total 760 ml Output Total 600 ml 1775 ml Balance 160 ml -1775 ml LUDIVINA BROWN MD Sep 09, 2016 08:33
[2016-09-09] MEDS ORDERED: CIPR500T94 PO (08:34)
[2016-09-09] MEDS ORDERED: FINA5TAB4 PO (08:34)
[2016-09-09 11:00] VITALS: BP 166/85
[2016-09-09] MEDS: HYDROCODONE/APAP 5/325MG TABLET. PO PRN (12:56)
--- NOTE | 2016-09-09 13:51 | PDOC ---
Provider Note Provider Note Urology: Montague out, urine clear. OK to discharge, Rx's Cipro, Flomax, and Proscar f/u as needed. GLORY CHEN DO Sep 09, 2016 13:51
--- NOTE | 2016-09-09 16:22 | DS ---
DATE OF DISCHARGE: 09/09/2016 CHIEF COMPLAINT: Hematuria. HISTORY OF PRESENT ILLNESS: The patient is a 75-year-old male with a history of BPH who presented to the Emergency Room with the above complaint. He reported the onset of hematuria on the day of admission. He described some pelvic pain that occurred and then he noticed bright red blood in his urine. He also apparently had some difficulty passing his urine at that time. He presented to the Emergency Room and was seen there by Dr. Cabezas who was his usual urologist. Dr. Cabezas performed bladder irrigation and was then able to place a Montague catheter and the patient was admitted for further treatment. HOSPITAL COURSE: The patient's hematuria improved and his urine culture was without growth. On 09/08/2016, Dr. Cabezas performed a cystoscopy. This showed hemorrhagic prostatitis. Dr. Cabezas performed a fulguration of the prostate. The patient remained stable postoperatively. Dr. Cabezas recommends that the patient resume Proscar and continue this with his Flomax long-term. He will also be discharged on Cipro per Dr. Cabezas's recommendation. His Montague catheter remains in place. He will follow up with Dr. Cabezas in the office for further management of this. The patient has had an indwelling Montague catheter at home previously and is comfortable with this. FINAL DIAGNOSES: 1. Hemorrhagic prostatitis. 2. Benign prostatic hypertrophy. 3. Gastroesophageal reflux disease. DISCHARGE MEDICATIONS: Tylenol p.r.n., Cipro 500 mg 1 p.o. b.i.d. x 10 days, finasteride 5 mg 1 daily, omeprazole 20 mg daily, Flomax 0.4 mg daily. FOLLOWUP: Followup is with Dr. Lopez as needed. Follow up with Dr. Cabezas as advised. LUDIVINA BROWN MD DR: CARLOTTA/marcela JOB#: [id number] / [id number] ASUNCION
== END 2016-09-09 14:20 | disposition home or self-care (01) | DRG 714 ==
LOC: ER 12:14 → 5 NORTH 17:30
PROVIDERS: ADMIT Family Medicine; ATTEND Family Medicine
PROC: 0V508ZZ Destruction of Prostate, Via Natural or Artificial Opening Endoscopic (ICD-10-PCS; principal; 2016-09-06)
DX: N41.8 Other inflammatory diseases of prostate (principal); N40.1 Benign prostatic hyperplasia with lower urinary tract symptoms; K21.9 Gastro-esophageal reflux disease without esophagitis; R31.0 Gross hematuria; M19.90 Unspecified osteoarthritis, unspecified site; R33.8 Other retention of urine
CPT/HCPCS: 36415; 51702; 76770; 80048; 81001; 85027; 85610; 87086; A4314; J1100; J1956; J2370; J2405; J2704; J3010; J7120; 99285-25

== ENCOUNTER 2017-09-29 18:22 | Emergency (ER) | payer MEDICARE, BC ==
[2017-09-29] MEDS: ONDANSETRON PF 4 MG/2 ML VIAL. IV (19:09)
[2017-09-29] MEDS: MORPHINE SULFATE 4 MG/ML DISP.SYRIN. IV (19:10)
[2017-09-29] MEDS: IV NORMAL SALINE 1000ML BAG 1,000 ML IV (19:11)
== END 2017-09-29 19:20 | disposition short-term general hospital (02) ==
LOC: ER 19:20
DX: S05.91XA Unspecified injury of right eye and orbit, initial encounter (principal); I10 Essential (primary) hypertension; H05.20 Unspecified exophthalmos; H11.421 Conjunctival edema, right eye; N40.0 Benign prostatic hyperplasia without lower urinary tract symptoms; H54.61 Unqualified visual loss, right eye, normal vision left eye; Y93.89 Activity, other specified; W31.89XA Contact with other specified machinery, initial encounter; Y99.8 Other external cause status; Y92.89 Other specified places as the place of occurrence of the external cause
CPT/HCPCS: 70486; 96374; 96375; 99283; 99284; J2270; J2405; J7030

== ENCOUNTER → 2017-11-16 | Outpatient (CLI) | payer MEDICARE | END | disposition home or self-care (01) | LOC: US 07:01 | DX: N28.1 Cyst of kidney, acquired (principal) | CPT/HCPCS: 76700 ==

== ENCOUNTER 2019-11-15 01:56 | Emergency (ER) | payer BC, MEDICARE ==
[~2019-11-15] VITALS: Ht 185.4 cm; Wt 82.2 kg
[~2019-11-15 01:56] MED LIST changes: -HYDR-2666 PO; +HYDR-2761 PO; +OMEP20CA16 PO; -TRAM-29 PO; +TRAM-48 PO
[2019-11-15 02:27] LABS: BILIRUBIN,URINE NEGATIVE (NEG); CLARITY,URINE CLOUDY; COLOR,URINE YELLOW; NITRITE,URINE NEGATIVE (NEG); PROTEIN,URINE NEGATIVE (NEG-TRACE); UROBILINOGEN,URINE 0.2 mg/dL (0.2 mg/dL)
[2019-11-15 02:36] LABS: RBC,URINE TNTC /HPF (0-2); WBC,URINE OCC /HPF (0-4)
[2019-11-15 02:37] LABS: AMORPHOUS SEDIMENT,UR PRESENT /HPF; BACTERIA,URINE FEW /HPF (0-FEW)
[2019-11-15 02:52] LABS: BASO # 0.1 x10^3/uL (0.0-0.2); BASO % 1 % (0-3); EOS # 0.2 x10^3/uL (0.0-0.7); EOS % 5 % (0-3); HEMATOCRIT 41.1 % (39.0-53.0); HEMOGLOBIN 13.4 g/dL (13.0-17.5); LYMPH # 0.8 x10^3/uL (1.0-4.8); LYMPH % 20 % (24-48); MEAN CORPUSCULAR HEMOGLOBIN 26 pg (25-35); MEAN CORPUSCULAR HGB CONC 33 g/dL (31-37); MEAN CORPUSCULAR VOLUME 80 fL (79-100); MONO # 0.4 x10^3/uL (0.0-1.1); MONO % 8 % (0-9); NEUT # 2.9 x10^3/uL (1.8-7.7); NEUT % 66 % (31-73); PLATELET COUNT 222 x10^3/uL (140-400); RED BLOOD COUNT 5.14 x10^6/uL (4.30-5.70); RED CELL DISTRIBUTION WIDTH 25.2 % (11.5-14.5); WHITE BLOOD COUNT 4.3 x10^3/uL (4.0-11.0)
[2019-11-15 03:00] LABS: CALCIUM 8.9 mg/dL (8.5-10.1); GFR 86.8; POTASSIUM 3.7 mmol/L (3.5-5.1)
[2019-11-15 03:05] LABS: ALBUMIN 3.6 g/dL (3.4-5.0); ALBUMIN/GLOBULIN RATIO 0.9 (1.0-1.7); TOTAL BILIRUBIN 0.3 mg/dL (0.2-1.0); TOTAL PROTEIN 7.6 g/dL (6.4-8.2)
[2019-11-15 03:09] LABS: PLT ESTIMATE ADEQUATE (ADEQUATE); POIKILOCYTOSIS SLIGHT
[2019-11-15 03:11] LABS: ANISOCYTOSIS MARKED; HELMET CELLS OCC
--- NOTE | 2019-11-15 03:31 | PHYS DOC ---
Past Medical History Past Medical History: Hypertension Additional Past Medical Histor: BPH. Past Surgical History: Other Additional Past Surgical Histo: hernia, back Smoking Status: Never Smoker Alcohol Use: None Drug Use: None General Adult EDM: Chief Complaint: URINARY RETENTION HPI: HPI: Patient is a 79 year old male who presents with complaint of suprapubic pain, stating that his Montague catheter has stopped draining. Patient indicates that he has been noticing some hematuria. He denies any fever. He denies any chest pain or shortness of breath. [] Review of Systems: Review of Systems: Constitutional: Denies fever or chills. [] Respiratory: Denies cough or shortness of breath. [] Cardiovascular: Denies chest pain or edema. [] GI: Complains of suprapubic pain without vomiting or diarrhea. [] : Complains of urinary retention. [] Neurologic: Denies headache, focal weakness or sensory changes. [] Heart Score: Risk Factors: Risk Factors: DM, Current or recent (<one month) smoker, HTN, HLP, family history of CAD, obesity. Risk Scores: Score 0 - 3: 2.5% MACE over next 6 weeks - Discharge Home Score 4 - 6: 20.3% MACE over next 6 weeks - Admit for Clinical Observation Score 7 - 10: 72.7% MACE over next 6 weeks - Early Invasive Strategies Allergies: Allergies: Allergies Coded Allergies Type Severity Reaction Last Updated Verified No Known Drug Allergies 03/09/16 No Physical Exam: PE: Constitutional: Well developed, well nourished, no acute distress, non-toxic appearance. [] Neck: Normal range of motion, no tenderness, supple, no stridor. [] Cardiovascular: Regular rate and rhythm [] Lungs & Thorax: Bilateral breath sounds clear to auscultation [] Abdomen: Bowel sounds normal, soft, with suprapubic tenderness. [] Skin: Warm, dry, no erythema, no rash. [] Current Patient Data: Labs: Laboratory Tests Test 11/15/19 02:15 11/15/19 02:30 Urine Collection Type U cath Urine Color Yellow Urine Clarity Cloudy Urine pH 6.0 (<5.0-8.0) Urine Specific [place] 1.010 (1.000-1.030) Urine Protein Negative mg/dL (NEG-TRACE) Urine Glucose (UA) Negative mg/dL (NEG) Urine Ketones (Stick) Negative mg/dL (NEG) Urine Blood Large (NEG) Urine Nitrite Negative (NEG) Urine Bilirubin Negative (NEG) Urine Urobilinogen Dipstick 0.2 mg/dL (0.2 mg/dL) Urine Leukocyte Esterase Negative (NEG) Urine RBC Tntc /HPF (0-2) Urine WBC Occ /HPF (0-4) Urine Squamous Epithelial Cells None /LPF Urine Amorphous Sediment Present /HPF Urine Bacteria Few /HPF (0-FEW) Urine Mucus Slight /LPF White Blood Count 4.3 x10^3/uL (4.0-11.0) Red Blood Count 5.14 x10^6/uL (4.30-5.70) Hemoglobin 13.4 g/dL (13.0-17.5) Hematocrit 41.1 % (39.0-53.0) Mean Corpuscular Volume 80 fL (79-100) Mean Corpuscular Hemoglobin 26 pg (25-35) Mean Corpuscular Hemoglobin Concent 33 g/dL (31-37) Red Cell Distribution Width 25.2 % (11.5-14.5) H Platelet Count 222 x10^3/uL (140-400) Neutrophils (%) (Auto) 66 % (31-73) Lymphocytes (%) (Auto) 20 % (24-48) L Monocytes (%) (Auto) 8 % (0-9) Eosinophils (%) (Auto) 5 % (0-3) H Basophils (%) (Auto) 1 % (0-3) Neutrophils # (Auto) 2.9 x10^3/uL (1.8-7.7) Lymphocytes # (Auto) 0.8 x10^3/uL (1.0-4.8) L Monocytes # (Auto) 0.4 x10^3/uL (0.0-1.1) Eosinophils # (Auto) 0.2 x10^3/uL (0.0-0.7) Basophils # (Auto) 0.1 x10^3/uL (0.0-0.2) Platelet Estimate Adequate (ADEQUATE) Poikilocytosis Slight Anisocytosis Marked Helmet Cells Occ Sodium Level 139 mmol/L (136-145) Potassium Level 3.7 mmol/L (3.5-5.1) Chloride Level 104 mmol/L (98-107) Carbon Dioxide Level 27 mmol/L (21-32) Anion Gap 8 (6-14) Blood Urea Nitrogen 15 mg/dL (8-26) Creatinine 1.0 mg/dL (0.7-1.3) Estimated GFR (Cockcroft-Gault) 86.8 BUN/Creatinine Ratio 15 (6-20) Glucose Level 123 mg/dL (70-99) H Calcium Level 8.9 mg/dL (8.5-10.1) Total Bilirubin 0.3 mg/dL (0.2-1.0) Aspartate Amino Transferase (AST) 17 U/L (15-37) Alanine Aminotransferase (ALT) 13 U/L (16-63) L Alkaline Phosphatase 102 U/L (46-116) Total Protein 7.6 g/dL (6.4-8.2) Albumin 3.6 g/dL (3.4-5.0) Albumin/Globulin Ratio 0.9 (1.0-1.7) L Laboratory Tests 11/15/19 02:30 Laboratory Tests 11/15/19 02:30 EKG: EKG: [] Radiology/Procedures: Radiology/Procedures: [] Course & Med Decision Making: Course & Med Decision Making Pertinent Labs and Imaging studies reviewed. (See chart for details) [] Dragon Disclaimer: Dragon Disclaimer: This electronic medical record was generated, in whole or in part, using a voice recognition dictation system. Departure Departure Impression: Primary Impression: Urinary retention Additional Impressions: Obstructed Montague catheter Qualified Codes: T83.091A - Other mechanical complication of indwelling urethral catheter, initial encounter Hematuria Qualified Codes: R31.9 - Hematuria, unspecified Disposition: 01 HOME, SELF-CARE Condition: STABLE Referrals: NILA CHILD MD (PCP) Patient Instructions: Montague Catheter Care, Adult, Hematuria, Adult, Urinary Retention, Acute, Male Justicifation of Admission Dx: Justifications for Admission: Justification of Admission Dx: Comment: (Not applicable) ABDOUL MCARTHUR Jr. DO Nov 15, 2019 03:31
[2019-11-15 03:45] VITALS: BP 153/94
== END 2019-11-15 04:21 | disposition home or self-care (01) ==
LOC: ER 01:56
DX: T83.091A Other mechanical complication of indwelling urethral catheter, initial encounter (principal); R33.9 Retention of urine, unspecified; R31.9 Hematuria, unspecified; R10.2 Pelvic and perineal pain; I10 Essential (primary) hypertension; Z98.890 Other specified postprocedural states
CPT/HCPCS: 36415; 51702; 80053; 81001; 85025; 99285

== ENCOUNTER 2019-11-16 13:40 | Emergency (ER) | payer MEDICARE ==
[~2019-11-16] VITALS: Ht 185.4 cm; Wt 80.0 kg
--- NOTE | 2019-11-16 14:47 | PHYS DOC ---
Past Medical History Past Medical History: Arthritis, GERD, Hypertension, Seizure, UTI Additional Past Medical Histor: BPH.PROSTIC HEMORAGE,DONG PLACEMENTS,VISUAL IMPARMENT. (ZACH PALOMINO APRN) Past Surgical History: Other Additional Past Surgical Histo: hernia, back (ZACH PALOMINO APRN) Smoking Status: Never Smoker Alcohol Use: None Drug Use: None (ZACH PALOMINO APRN) General Adult EDM: Chief Complaint: CATHETER CHANGE HPI: HPI: Patient is a 79 year old AA male who presents to the emergency department with complaints of his catheter not draining into the bag. Patient states that the u rine is leaking around the catheter so he has been wearing a depends. Patient states he was seen here early yesterday morning and had the catheter placed because he could not urinate. atient reports a history of enlarged prostate with a TURP 2 or 3 years ago. He denies any dysuria, lower abdominal pain, fever, back pain, nausea, vomiting, diarrhea, cough, or shortness of breath. Patient states he did notice that there was blood in his urine and his urine was dark prior to the inability to void, he also states that his urine has smelled very strong today. He denies any testicular pain but reports discomfort in his penis from the catheter he currently rates it a 5 out of 10 on the pain scale, he denies any alleviating factors, the pain is worse if the catheter is moved. (ZACH PALOMINO APRN) Review of Systems: Review of Systems: Constitutional: Denies fever or chills. [] Respiratory: Denies cough or shortness of breath. [] Cardiovascular: Denies chest pain or edema. [] GI: Denies abdominal pain, nausea, vomiting, or diarrhea. [] : See HPI Musculoskeletal: Denies back pain Neurologic: Denies headache, focal weakness or sensory changes. [] Psychiatric: Denies depression or anxiety. [] (ZACH PALOMINO APRN) Heart Score: Risk Factors: Risk Factors: DM, Current or recent (<one month) smoker, HTN, HLP, family history of CAD, obesity. Risk Scores: Score 0 - 3: 2.5% MACE over next 6 weeks - Discharge Home Score 4 - 6: 20.3% MACE over next 6 weeks - Admit for Clinical Observation Score 7 - 10: 72.7% MACE over next 6 weeks - Early Invasive Strategies (ZACH PALOMINO APRN) Allergies: Allergies: Allergies Coded Allergies Type Severity Reaction Last Updated Verified No Known Drug Allergies 03/09/16 No (ZACH PALOMINO APRN) Physical Exam: PE: Constitutional: Well developed, well nourished, no acute distress, non-toxic appearance. [] HENT: Normocephalic, atraumatic, bilateral external ears normal, nose normal. [] Eyes: PERRLA, EOMI, conjunctiva normal, no discharge. [] Neck: Normal range of motion, no stridor. [] Cardiovascular:Heart rate regular rhythm Lungs & Thorax: Respirations even and unlabored, no retractions, no respiratory distress Abdomen: soft, no tenderness : Catheter in place but is not currently draining, there is urine draining around the catheter from the urethra no suprapubic tenderness skin: Warm, dry, no erythema, no rash. [] Extremities: No cyanosis, ROM intact, no edema. [] Neurologic: Alert and oriented X 3, no focal deficits noted. [] Psychologic: Affect normal, judgement normal, mood normal. [] (ZACH PALOMINO APRN) EKG: EKG: [] (ZACH PALOMINO APRN) Radiology/Procedures: Radiology/Procedures: The pre-existing catheter was removed from the patient's urethra by myself, following catheter removal there was 88 mL of urine in the patient's bladder. The patient was unable to void after catheter removal. An 18 Beninese coud catheter was inserted into the patient's urethra by myself, using sterile technique, about 15 mL of lizette-colored strong smelling urine drained into the Dong bag. There were no complications, no difficulty with Dong insertion. (ZACH PALOMINO APRN) Course & Med Decision Making: Course & Med Decision Making Pertinent Labs and Imaging studies reviewed. (See chart for details) Patient is a 79-year-old male who presented to the emergency department with complaints of his catheter leaking. CBC revealed no acute findings; BMP revealed a serum of 3.2; urinalysis revealed large amount of blood with 5-10 white blood cells, no bacteria or nitrates. The patient was given 500 of normal saline and a gram of Rocephin in the emergen cy department. The existing Dong catheter was removed and a coud was reinserted by myself. The drainage around the catheter ceased after Dong was replaced. Patient reported feeling better. Patient instructed to follow-up with urology next week. Return to the ER symptoms worsened or fever develop. Patient verbalized an understanding of home care, medications, follow-up, and return to ED instructions and was in agreement with the plan of care. [] (ZACH PALOMINO APRN) Dragon Disclaimer: Dragon Disclaimer: This electronic medical record was generated, in whole or in part, using a voice recognition dictation system. (ZACH PALOMINO APRN) Departure Departure Impression: Primary Impression: Dong catheter problem Additional Impression: Encounter for Dong catheter replacement Disposition: HOME, SELF-CARE Condition: STABLE Referrals: NILA CHILD MD (PCP) Patient Instructions: Dong Catheter Care, Adult Additional Instructions: Follow-up follow-up with your urologist next week. Return to the ER if your symptoms worsen. Justicifation of Admission Dx: Justifications for Admission: Justification of Admission Dx: N/A (ZACH PALOMINO APRN) Attending Signature Attending Signature I have participated in the care of this patient and I have reviewed and agree with all pertinent clinical information above including history, exam, and recommendations. (JANAE RAMSEY DO) ZACH PALOMINO APRN Nov 16, 2019 14:47 JANAE RAMSEY DO Nov 17, 2019 11:57
[2019-11-16 14:48] LABS: BILIRUBIN,URINE SMALL (NEG); CLARITY,URINE CLOUDY; COLOR,URINE RED; NITRITE,URINE NEGATIVE (NEG); PROTEIN,URINE >=300 mg/dL (NEG-TRACE)
[2019-11-16 15:08] LABS: BACTERIA,URINE 0 /HPF (0-FEW); RBC,URINE TNTC /HPF (0-2)
[2019-11-16] MEDS ORDERED: IV NORMAL SALINE 500ML BAG 500 ML IV ONE (15:15)
[2019-11-16] MEDS ORDERED: cefTRIAXone IV Push 1 GM VIAL. IVP ONE (15:15)
[2019-11-16 15:50] LABS: BASO % 1 % (0-3); EOS # 0.2 x10^3/uL (0.0-0.7); EOS % 3 % (0-3); HEMOGLOBIN 12.4 g/dL (13.0-17.5); LYMPH # 1.4 x10^3/uL (1.0-4.8); LYMPH % 24 % (24-48); MEAN CORPUSCULAR HEMOGLOBIN 26 pg (25-35); MEAN CORPUSCULAR HGB CONC 33 g/dL (31-37); MEAN CORPUSCULAR VOLUME 80 fL (79-100); MONO # 0.5 x10^3/uL (0.0-1.1); MONO % 9 % (0-9); NEUT # 3.8 x10^3/uL (1.8-7.7); NEUT % 64 % (31-73); PLATELET COUNT 190 x10^3/uL (140-400); RED BLOOD COUNT 4.75 x10^6/uL (4.30-5.70); RED CELL DISTRIBUTION WIDTH 24.7 % (11.5-14.5)
[2019-11-16 16:01] LABS: CALCIUM 8.5 mg/dL (8.5-10.1); CREATININE 0.9 mg/dL (0.7-1.3); POTASSIUM 3.2 mmol/L (3.5-5.1)
[2019-11-16 17:21] VITALS: BP 134/84
[2019-11-16 19:57] LABS: ANISOCYTOSIS SLIGHT; PLT ESTIMATE ADEQUATE (ADEQUATE)
[2019-11-16 19:58] LABS: BURR CELLS OCC; MICROCYTOSIS SLIGHT
== END 2019-11-16 17:21 | disposition home or self-care (01) ==
LOC: ER 13:40
DX: T83.098A Other mechanical complication of other urinary catheter, initial encounter (principal); K21.9 Gastro-esophageal reflux disease without esophagitis; I10 Essential (primary) hypertension; N40.0 Benign prostatic hyperplasia without lower urinary tract symptoms; Z87.440 Personal history of urinary (tract) infections; Z98.890 Other specified postprocedural states; Y82.8 Other medical devices associated with adverse incidents; Y92.89 Other specified places as the place of occurrence of the external cause
CPT/HCPCS: 36415; 51702; 80048; 81001; 85025; 87086; 96374; 99285; J0696; J7040

== ENCOUNTER 2019-11-23 15:30 | Emergency (ER) | payer BC, MEDICARE ==
[~2019-11-23] VITALS: Ht 185.4 cm; Wt 84.0 kg
[2019-11-23 16:42] LABS: BASO # 0.1 x10^3/uL (0.0-0.2); BASO % 1 % (0-3); EOS # 0.5 x10^3/uL (0.0-0.7); EOS % 11 % (0-3); HEMATOCRIT 34.7 % (39.0-53.0); HEMOGLOBIN 11.8 g/dL (13.0-17.5); LYMPH # 1.4 x10^3/uL (1.0-4.8); LYMPH % 32 % (24-48); MEAN CORPUSCULAR HEMOGLOBIN 27 pg (25-35); MEAN CORPUSCULAR HGB CONC 34 g/dL (31-37); MEAN CORPUSCULAR VOLUME 79 fL (79-100); MONO # 0.5 x10^3/uL (0.0-1.1); MONO % 11 % (0-9); NEUT # 2.1 x10^3/uL (1.8-7.7); NEUT % 46 % (31-73); PLATELET COUNT 229 x10^3/uL (140-400); RED BLOOD COUNT 4.39 x10^6/uL (4.30-5.70); WHITE BLOOD COUNT 4.5 x10^3/uL (4.0-11.0)
[2019-11-23] MEDS ORDERED: IV NORMAL SALINE 500ML BAG 500 ML IV ONE (16:45)
--- NOTE | 2019-11-23 17:49 | PHYS DOC ---
Past Medical History Past Medical History: Arthritis, GERD, Hypertension, Seizure, UTI Additional Past Medical Histor: BPH.PROSTIC HEMORAGE,DONG PLACEMENTS,VISUAL IMPARMENT. Past Surgical History: Other Additional Past Surgical Histo: hernia, back Smoking Status: Never Smoker Alcohol Use: None Drug Use: None General Adult EDM: Chief Complaint: URINE CATHETER PROBLEM HPI: HPI: Patient is a 79 year old AA male who presents to the emergency department with complaints of bright red urine and blood clots draining into his catheter bag since last night. Patient was here on November 152019 and had a catheter replaced because urine was draining from around his previous Dong. He states that there has not been urine leaking from around the Dong but he has noticed that there is not as much drainage from the catheter today and thinks it is clotted off. He denies any nausea, vomiting, diarrhea, abdominal pain, fever, weakness, cough, body aches, or fatigue. He currently denies any pain. Patient states that his StatLock for the Dong came off yesterday and he thinks he may have pulled on the Dong on accident. Review of Systems: Review of Systems: Constitutional: Denies fever or chills. [] Eyes: Denies change in visual acuity. [] HENT: Denies nasal congestion or sore throat. [] Respiratory: Denies cough or shortness of breath. [] Cardiovascular: Denies chest pain or edema. [] GI: Denies abdominal pain, nausea, vomiting, or diarrhea. [] : See HPI Musculoskeletal: Denies joint pain. [] Integument: Denies rash. [] Neurologic: Denies headache Psychiatric: Denies depression or anxiety. [] Heart Score: Risk Factors: Risk Factors: DM, Current or recent (<one month) smoker, HTN, HLP, family history of CAD, obesity. Risk Scores: Score 0 - 3: 2.5% MACE over next 6 weeks - Discharge Home Score 4 - 6: 20.3% MACE over next 6 weeks - Admit for Clinical Observation Score 7 - 10: 72.7% MACE over next 6 weeks - Early Invasive Strategies Current Medications: Current Medications Medications (Trade) Dose Ordered Sig/Juan Start Time Stop Time Status Last Admin Dose Admin Sodium Chloride 500 ml @ 500 mls/hr 1X ONCE 11/23/19 16:45 11/23/19 17:44 11/23/19 17:09 500 MLS/HR Allergies: Allergies: Allergies Coded Allergies Type Severity Reaction Last Updated Verified No Known Drug Allergies 03/09/16 No Physical Exam: PE: Constitutional: Well developed, well nourished, no acute distress, non-toxic appearance. [] HENT: Normocephalic, atraumatic, bilateral external ears normal, nose normal. [] Eyes: PERRLA, EOMI, conjunctiva normal, no discharge. [] Neck: Normal range of motion, no stridor. [] Cardiovascular:Heart rate regular rhythm Lungs & Thorax: Respirations even and unlabored, no retractions, no respiratory distress : Coud catheter present at urethral meatus, no bloody drainage or erythema at the urethra, catheter tubing appears to be clogged with blood clots. Abdomen: soft, no tenderness Skin: Warm, dry, no erythema, no rash. [] Extremities: No cyanosis, ROM intact, no edema. [] Neurologic: Alert and oriented X 3, no focal deficits noted. [] Psychologic: Affect normal, judgement normal, mood normal. [] Current Patient Data: Labs: Laboratory Tests Test 11/23/19 16:28 White Blood Count 4.5 x10^3/uL (4.0-11.0) Red Blood Count 4.39 x10^6/uL (4.30-5.70) Hemoglobin 11.8 g/dL (13.0-17.5) L Hematocrit 34.7 % (39.0-53.0) L Mean Corpuscular Volume 79 fL (79-100) Mean Corpuscular Hemoglobin 27 pg (25-35) Mean Corpuscular Hemoglobin Concent 34 g/dL (31-37) Red Cell Distribution Width 23.0 % (11.5-14.5) H Platelet Count 229 x10^3/uL (140-400) Neutrophils (%) (Auto) 46 % (31-73) Lymphocytes (%) (Auto) 32 % (24-48) Monocytes (%) (Auto) 11 % (0-9) H Eosinophils (%) (Auto) 11 % (0-3) H Basophils (%) (Auto) 1 % (0-3) Neutrophils # (Auto) 2.1 x10^3/uL (1.8-7.7) Lymphocytes # (Auto) 1.4 x10^3/uL (1.0-4.8) Monocytes # (Auto) 0.5 x10^3/uL (0.0-1.1) Eosinophils # (Auto) 0.5 x10^3/uL (0.0-0.7) Basophils # (Auto) 0.1 x10^3/uL (0.0-0.2) Laboratory Tests 11/23/19 16:28 Vital Signs: Vital Signs Date Time Temp Pulse Resp B/P (MAP) Pulse Ox O2 Delivery O2 Flow Rate FiO2 11/23/19 15:33 98.2 77 18 138/92 (107) 100 Room Air 98.2 EKG: EKG: [] Radiology/Procedures: Radiology/Procedures: 1730-the previous coud catheter was removed by nursing staff. I reinserted and the 18-gauge Coude catheter into the patient's urethra without any difficulty, the balloon was inflated with 30 mL of saline. A piston syringe was used to irrigate the patient's bladder with 250 mils of sterile bladder irrigant. Initially some small dark red blood clots drained. After a 250 mL of irrigant pale pink returned. The daily catheter was attached to a sterile Dong bag and StatLock to the upper left leg by the nurse. Minimal blood loss, no complications, patient tolerated procedure well. Urinalysis was not concerning for urinary tract infection. Patient was encouraged to follow-up with his primary care doctor or urologist for further evaluation of his catheter needs. Return to the ER if symptoms worsen. Patient verbalized an understanding of home care, medications, follow-up, and return to ED instructions and was in agreement with the plan of care.] Course & Med Decision Making: Course & Med Decision Making Pertinent Labs and Imaging studies reviewed. (See chart for details) [] Dragon Disclaimer: Dragon Disclaimer: This electronic medical record was generated, in whole or in part, using a voice recognition dictation system. Departure Departure Impression: Primary Impression: Encounter for Dong catheter replacement Additional Impression: Obstructed Dong catheter Disposition: HOME, SELF-CARE Condition: STABLE Referrals: NILA LOPEZ MD (PCP) Patient Instructions: Dong Catheter Care, Adult Additional Instructions: Follow up with Dr. Lopez or your urologist next week. Be careful no to tug on or pull your catheter. Return to the ER if symptoms worsen. Justicifation of Admission Dx: Justifications for Admission: Justification of Admission Dx: N/A ZACH PALOMINO GARAGE HAND Nov 23, 2019 17:49
[2019-11-23 18:36] LABS: BILIRUBIN,URINE NEGATIVE (NEG); CLARITY,URINE CLEAR; COLOR,URINE RED; NITRITE,URINE NEGATIVE (NEG); PH,URINE 6.5 (<5.0-8.0); PROTEIN,URINE 100 mg/dL (NEG-TRACE); UROBILINOGEN,URINE 0.2 mg/dL (0.2 mg/dL)
[2019-11-23 18:46] LABS: BACTERIA,URINE 0 /HPF (0-FEW); RBC,URINE TNTC /HPF (0-2)
[2019-11-23 19:06] VITALS: BP 163/83
== END 2019-11-23 19:13 | disposition home or self-care (01) ==
LOC: ER 15:30
DX: T83.098A Other mechanical complication of other urinary catheter, initial encounter (principal); K21.9 Gastro-esophageal reflux disease without esophagitis; I10 Essential (primary) hypertension; Z87.440 Personal history of urinary (tract) infections; Y82.8 Other medical devices associated with adverse incidents; Y92.89 Other specified places as the place of occurrence of the external cause
CPT/HCPCS: 36415; 51702; 81001; 85025; 87086; 99285; J7040